=== PATIENT | male | born 1935 | race Caucasian/White ===

== ENCOUNTER 2018-03-07 10:28 | Day surgery (SDC) | payer MEDICARE, BC ==
[~2018-03-07] VITALS: Ht 170.2 cm; Wt 113.6 kg
[2018-03-07 10:38] VITALS: BP 160/98
[2018-03-07] MEDS ORDERED: MIDAZolam 5mg/5ml vial ONE (10:42)
[2018-03-07] MEDS ORDERED: fentaNYL/PF 50MCG/1 ML 2ML syringe ONE ×2 (10:42→10:43)
[2018-03-07] MEDS ORDERED: LIDOcaine Viscous 15ml cup ONE (10:42)
[2018-03-07] MEDS ORDERED: HYDR-3972 PO (10:55)
[2018-03-07] MEDS ORDERED: AMLODIPINE PO (10:56)
[2018-03-07] MEDS ORDERED: CLOP75TA15 PO (10:57)
[2018-03-07] MEDS ORDERED: ATOR10TA70 PO (10:58)
[2018-03-07] MEDS ORDERED: OMEP20CA10 PO (10:59)
[2018-03-07] MEDS ORDERED: COLC0.6T69 PO (11:00)
[2018-03-07 11:33] VITALS: BP 149/64
[2018-03-07 11:43] VITALS: BP 142/86
[2018-03-07 11:53] VITALS: BP 140/83
[2018-03-07 12:03] VITALS: BP 135/63
== END 2018-03-07 12:03 | disposition home or self-care (01) ==
LOC: GI LAB 10:28
PROVIDERS: ATTEND Internal Medicine Gastroenterology
DX: K29.50 Unspecified chronic gastritis without bleeding (principal); K20.8 Other esophagitis; K44.9 Diaphragmatic hernia without obstruction or gangrene; K22.70 Barrett's esophagus without dysplasia; Z88.2 Allergy status to sulfonamides; Z86.73 Personal history of transient ischemic attack (TIA), and cerebral infarction without residual deficits; Z87.891 Personal history of nicotine dependence; Z96.653 Presence of artificial knee joint, bilateral; Z72.89 Other problems related to lifestyle; Z85.828 Personal history of other malignant neoplasm of skin; Z79.891 Long term (current) use of opiate analgesic; Z98.890 Other specified postprocedural states; Z79.899 Other long term (current) drug therapy
CPT/HCPCS: 43239; G0500; J2250; J3010; J7030; 88305; 88342; A4620